=== PATIENT | female | born 1935 | race Caucasian/White ===

== ENCOUNTER 2017-08-02 02:41 | Inpatient (IN) | payer OTHER ==
[~2017-08-02] VITALS: Ht 162.6 cm; Wt 77.8 kg
[~2017-08-02 02:41] MED LIST: MELOXICAM15 M1 PO; SYNTHROID75 MCG PO; VICODIN 5-3001 EACH PO
--- NOTE | 2017-08-02 10:16 | Admission Core Measures ---
Acute Coronary Syndrome (CM) ACS Core Measures Acute Coronary Syndrome Diagnosis No Congestive Heart Failure (NEW) CHF Core Measures Congestive Heart Failure Diagnosis No Cerebrovascular Accident (NEW) CVA Core Measures CVA/TIA Diagnosis No Venous Thromboembolism VTE Core Ruddy (View Protocol) VTE Risk Factors Surgery No Mechanical VTE Prophylaxis d/t N/A MechProphylax Ordered No VTE Pharm Prophylaxis d/t NA PharmProphylax ordered Problem List As ranked by this Provider includes Assessment & Plan 1. Unilateral primary osteoarthritis, right hip HOME MEDS Home Med List Hydrocodone/Acetaminophen (Vicodin 5-300 MG Tablet) 5 MG-300 MG TABLET 1 TAB PO BID PAIN (Reported) Levothyroxine Sodium (Synthroid) 75 MCG TABLET 1 TAB PO DAILY HORMONE ( Reported) Meloxicam 15 MG TABLET 1 TAB PO DAILY PaIN (Reported)
--- NOTE | 2017-08-02 10:20 | Patient Discharge Instructions ---
Discharge Instructions General Discharge Information You were seen/treated for: Right hip pain related to unilateral primary osteoarthritis You had these procedures: Right total hip replacement Watch for these problems: Increasing pain despite the use of pain medication Increasing redness, warmth or swelling Drainage of any type from incision Inability to bear weight on operative leg Persistent nausea and vomiting Fever greater than 101.5 degrees Do not soak the wound: Yes No bath, but you may shower: Yes Other wound care: Please keep wound clean and dry. No ointments or lotions of any type on or near incision at any time. No exceptions. Your dressing will be changed by your nurse on the second day after your surgery. Daily dry dressing changes are recommended each day thereafter. Do not soak your wound in a bath at any time until otherwise indicated by your surgeon. You may shower, please dry wound immediately after shower with a clean towel. Special Instructions: Constipation: Pain medication can cause constipation. Dr. Mancia has recommended that you take Colace and miralax each day. You may discontinue this medication if you develop loose stool or diarrhea. If you wish to continue this medication, it is available over the counter. If you are unable to move your bowels after several days, if you are unable to pass gas and are developing bloating, nausea, or vomiting as a result, please contact your doctor. Diet Continue normal diet: Yes Recommended Diet: Regular Activity Full Activity/No Limits: No Activity Self Limited: Yes Pounds, do NOT lift more than: 10 Activity Limited to: Weight bear as tolerated Additional ACTIVITY Info: Posterior hip precautions in place until otherwise indicated by Dr. Mancia Acute Coronary Syndrome Inclusion Criteria At MI or during hospital stay patient has or had the following: ACS DIAGNOSIS No Discharge Core Measures Meds if any: Prescribed or Continued at Discharge Meds if any: NOT Prescribed or Continued at Discharge Congestive Heart Failure Inclusion Criteria At DC or during hospital stay patient has or had the following: CHF DIAGNOSIS No Discharge Core Measures Meds if any: Prescribed or Continued at Discharge Meds if any: NOT Prescribed or Continued at Discharge Cerebrovascular accident Inclusion Criteria At DC or during hospital stay patient has or had the following: CVA/TIA Diagnosis No Discharge Core Measures Meds if any: Prescribed or Continued at Discharge Meds if any: NOT Prescribed or Continued at Discharge Venous thromboembolism Inclusion Criteria VTE Diagnosis No VTE Type NONE VTE Confirmed by (Test) NONE Discharge Core Measures - Per Current guidelines, there needs to be overlap - treatment for the first 5 days of Warfarin therapy. - If discharged on Warfarin prior to 5 days of - overlap therapy, the patient will need to be - assessed for post discharge needs including - *Post discharge parental anticoagulation - *Warfarin and/or parental anticoagulation education - *Follow up date to check INR post discharge At least 5 days overlap therapy as Inpatient No Meds if any: Prescribed or Continued at Discharge Note: Overlap Therapy is Warfarin and Anticoagulant Meds if any: NOT Prescribed or Continued at Discharge
--- NOTE | 2017-08-02 10:22 | Surgical Discharge Summary ---
Visit Information Visit Dates Admission Date: 08/02/17 Discharge Date: 08/05/17 History of Present Illness Chief Complaint: Right hip pain related to unilateral primary osteoarthritis Medical History Pneumonia Vaccine: 01/27/03 Influenza Vaccine: 01/28/08 Surgical History Pertinent Surgical History: non-contributory Psychosocial History Who Do You Live With? Spouse What is Your Primary Language? Lithuanian Review of Systems: See H&P Hospital Course Course Attending Physician: Gerry Mancia MD Primary Care Physician: Samuel Maria MD Hospital Course: Patient was admitted to the hospital for an elective total joint replacement. The procedure was tolerated well and patient was transferred to a general surgical floor. Diet was advanced and tolerated.. The patient was evaluated and treated by physical therapy. At the time of hospital discharge, the vital signs were stable, neurovascular status was intact, and pain was controlled with the use of oral pain medications. Allergies: Coded Allergies: No Known Allergies (07/21/17) Disposition Summary Disposition Principal Diagnosis: Right hip unilateral primary osteoarthritis Additional Diagnosis: None Discharge Disposition: SNF Discharge Instructions General Discharge Information Code Status: Full Code Patient's Diet: Regular, advance as tolerated Patient's Activity: WBAT, posterior hip precautions in place Follow-Up Instructions/Appts: Follow up with Dr. Mancia in 2 weeks from date of surgery Medications at Discharge Discharge Medications: Stop taking the following medications: Hydrocodone/Acetaminophen (Vicodin 5-300 MG Tablet) 5 MG-300 MG TABLET ORAL TWICE DAILY Continue taking these medications: Levothyroxine Sodium (Synthroid) 75 MCG TABLET 1 Tablet ORAL DAILY
--- NOTE | 2017-08-02 10:43 | RADIOLOGY REPORT ---
EXAMINATION: XR HIP, RIGHT CLINICAL INFORMATION: Status post right total hip replacement. COMPARISON: Right hip radiograph 07/09/2015. TECHNIQUE: Single view of the right hip. FINDINGS: Prosthetic components of the right total hip arthroplasty are appropriately aligned. No periprosthetic fracture. Gas from recent surgery is present in the surrounding soft tissues. IMPRESSION: Expected postoperative findings related to total right hip arthroplasty.
[2017-08-02 11:37] VITALS: BP 126/78
--- NOTE | 2017-08-02 12:33 | Operative Report ---
Operative/Inv Procedure Report Surgery Date: 08/02/17 Name of Procedure: Right total hip arthroplasty Pre-Operative Diagnosis: Primary osteoarthritis right hipPrimary osteoarthritis right hip Post-Operative Diagnosis: SameSame Estimated Blood Loss: 300 Surgeon/Ensemble Member: Gavino W[place],Gerry PORTER Anesthesia: block IV Fluids: See anesthesia recordSee anesthesia record Implants: Opolis Accolade 2 stem size 5, 58 acetabular shell 127 neck angle standard neck length 36 mm head Drains: None Specimens: Right femoral head Complications: None Condition: Stable Operative Indication: Patient is a 81-year-old female who is failed conservative treatment for her primary osteoarthritis of the right hip. She was indicated for right total hip arthroplasty. The risks and benefits of the procedure were discussed with the patient in detail. She was to proceed. Skills that hand is necessary and provided by physician technical support assistant home on generator with limb positioning and retraction component assembly and tissue retraction throughout the case. Operative/Procedure Note Note: Once informed consent was obtained and the correct limb was identified patient was brought to have been placed on table supine position after administration of spinal anesthesia. A Nagy catheter was placed and the patient was placed in the left lateral decubitus position on the pegboard for positioning of a total hip arthroplasty. Right lower extremity was prepped and draped in usual sterile fashion after all bony prominences had been padded and an axillary roll was placed. To begin the procedure standard incision was made for superior approach to the hip. Sharp dissection carried down through skin and subcutis tissue. The gluteus rocael fascia was incised and the fibers were bluntly dissected. Retractors placed deep to the gluteus medius and around the femoral neck. The piriformis muscle and tendon were identified and released from the insertion point in the piriformis fossa and tagged for later repair. At this point the retractor was then placed deep to gluteus minimus and the superior capsule was exposed. A superior capsulotomy was performed. Labrum was resected and the hip was dislocated. Femoral neck cut was made a fingerbreadth above the lesser trochanter. Femoral head was removed and passed off as specimen. Anterior and inferior acetabular retractors were placed and pulmonary was removed from the acetabulum. Any remaining labrum was resected as well as bony osteophytes of the acetabular shell. We then began reaming sequentially is a 45 reamer and reamed up to a size 57 reamer. We were able to trial 50 copy writer which had a good press-fit. He has time and was pulse lavaged in size 58 acetabular shell was opened and press-fit into the acetabulum. 2 screws were placed in the posterior superior quadrant for fixation purposes. The 10 liner was opened up and locked onto the acetabular without complication. A Ray-Justice was placed to protect it. Attention was then turned to the femoral component. The femur was internally rotated and the box osteotome was used to remove lateral femoral neck. The canal finding reamer was used to open up the femoral canal. We then began broaching starting with a 0 broach and broached up to a size 5 broach size 5 broach was left in place and found to be stable. A trial reduction was done with a standard neck length 127 neck angle and 36 mg. The hip relocated nicely and was stable to anterior and posterior rotation. Leg lengths are equal. The hip was stable with 95 of flexion and 30 of internal rotation. Hip was redislocated and the components removed. The femoral canal was pulse lavaged and a size 5 Accolade 2 127 neck anglewas opened and placed on the femoral canal using press-fit technique. Excellent fixation was obtained. Trial reduction was done again with a 36 mm head 0 neck length. This is found to be stable. The hip was dislocated and the 36 mm Biolox head was opened and placed onto the stem. Hip was relocated and again taken through range of motion. At this point the wound was irrigated with pulse lavage. A drill was placed to the greater trochanter and the capsule and piriformis tendon were repaired back to the greater trochanter. Gluteus fascia was then repaired with a running #1 looped Maxon suture. The subcutaneous tissues closed with #1 Vicryl and 2-0 Vicryl interrupted sutures and the skin was closed with frank. Sterile dressing was applied and patient was awakened taken, in stable condition.
--- NOTE | 2017-08-02 13:27 | PN- Orthopedic ---
Subjective Subjective: POC S/P RIGHT VERONICA SITTING UP IN BED EATING LUNCH IN GOOD SPIRITS\ DENEIS CP, SOB, NO N+V WITH DIET Objective Vital Signs and I&Os Vital Signs Date Time Temp Pulse Resp B/P B/P Pulse O2 O2 Flow FiO2 Mean Ox Delivery Rate 08/02 1137 95 Nasal 2.0L Cannula 08/02 113 97.0 74 18 126/78 95 Room Air Intake & Output 08/02 0808/02 0000 08/01 1600 08/01 0808/01 0000 Intake Total Output Total Balance Patient 170 lb Weight Weight Reported by Patient Measurement Method Physical Exam: CV: RRR LUNGS: CLEAR ABD: SOFT, +BS EXT: THGH SOFT DRSG DRY, DISTAL CMS INTACT Assessment/Plan Assessment/Plan ORTHO STABLE PLAN ELIQUIS BID FOR DVT PROPHYLAXIS WEEN IVF OOB WITH PT, WBAT RIGHT LE POSTERIOR HIP PRECAUTONS RIGHT HIP\ ADVANCE DIET Core Measures Venous Thromboembolism VTE Risk Factors Surgery No Mechanical VTE Prophylaxis d/t N/A MechProphylax Ordered No VTE Pharm Prophylaxis d/t NA PharmProphylax ordered
[2017-08-02 13:58] VITALS: BP 112/58
--- NOTE | 2017-08-02 15:15 | Cons- Medical ---
Estela Voss 08/02/17 1515: General Information and HPI Consulting Request Date of Consult: 08/02/17 Requested By: Gerry Mancia MD Reason for Consult: Help with medical management Source of Information: patient Exam Limitations: no limitations History of Present Illness: This is a 81 YO F w/pmh significant for hypothyroidism, PE diagnosed in 2002 not on medications, took warfarin for one year, s/p IVC filter a week ago, right knee OA and chronic pain, hyperlipidemia on red rice yeast, unspecified skin cancer on RUE s/p removal 2 years ago who is admitted under surgical service for right total hip arthroplasty. She used to be on iron for anemia which was stopped last week as her labs were returned to normal. She has appointment for removal of IVC filter in 3 weeks. At the time of our interview, she offers no complaints. She underwent right total hip arthroplasty today. Per patient she takes her levothyroxine only 6 days a week. The patient does not smoke, no ETOH or illicit drug use. Per patient, she was on statin in past and developed muscle pain, her statin was stopped and she was started on red rice yeast. Allergies/Medications Allergies: Coded Allergies: No Known Allergies (07/21/17) Review of Systems Review of Systems Constitutional: Reports: no symptoms. EENTM: Reports: no symptoms. Cardiovascular: Reports: no symptoms. Respiratory: Reports: no symptoms. Denies: cough, hemoptysis, orthopnea, short of breath. GI: Reports: constipation. Denies: see HPI, abdominal pain, bloating, diarrhea, distention, bowel incontinence, melena, nausea, bloody stool, changes in stool, vomiting, steatorrhea. Genitourinary: Reports: no symptoms. Musculoskeletal: Reports: joint pain. Denies: back pain, joint swelling, muscle pain, muscle stiffness, neck pain. Skin: Reports: no symptoms. Neurological/Psychological: Reports: no symptoms. Hematologic/Endocrine: Reports: no symptoms. Immunologic/Allergic: Reports: no symptoms. All Other Systems: Reviewed and Negative Past History Medical History Blood Transfusion Hx: No Neurological: NONE EENT: NONE Cardiovascular: hyperlipidemia Respiratory: NONE Gastrointestinal: NONE Hepatic: NONE Renal: NONE Musculoskeletal: degen joint disease, osteoarthritis Psychiatric: NONE Endocrine: hypopituitarism Blood Disorders: DVT, PE Cancer(s): basal cell carcinoma PACKAGE HANDLER/Reproductive: NONE Surgical History Surgical History: non-contributory Psychosocial History Where Do You Live? Home Smoking Status: Never Smoked Exam & Diagnostic Data Last 24 Hrs of Vital Signs/I&O Vital Signs Date Time Temp Pulse Resp B/P B/P Pulse O2 O2 Flow FiO2 Mean Ox Delivery Rate 08/02 1358 97.5 72 18 112/58 94 Nasal 2.0L Cannula 08/02 1137 95 Nasal 2.0L Cannula 08/02 1137 97.0 74 18 126/78 95 Room Air Intake & Output 08/02 1600 08/02 0800 08/02 0000 Intake Total 1000 Output Total Balance 1000 Intake, IV 400 Intake, Oral 600 Patient 170 lb Weight Weight Reported by Patient Measurement Method Physical Exam General Appearance: alert, awake, comfortable Head: atraumatic, normal appearance Eyes: Bilateral: normal appearance, PERRL, EOMI. Ears, Nose, Throat: normal pharynx, normal ENT inspection Neck: supple Respiratory: normal breath sounds, chest non-tender, no respiratory distress Cardiovascular: regular rate/rhythm Gastrointestinal: normal bowel sounds, soft, non-tender, no organomegaly Back: normal inspection Extremities: normal inspection, no edema, pulses wnl and symmetrical Last 24 Hrs of Labs/Vel: Microbiology 08/02 0755 URINE ROUT: Urine Culture - RECD Assessment/Plan Assessment/Plan This is a 81 YO F w/pmh significant for hypothyroidism, PE diagnosed in 2002 not on medications, took warfarin for one year, s/p IVC filter a week ago, right knee OA and chronic right knee pain, hyperlipidemia on red rice yeast, unspecified skin cancer on RUE s/p removal 2 years ago who is admitted under surgical service for right total hip arthroplasty. Now POD 0. Problem list: #Hypothyroidism #Remote h/o PE s/p IVC filter placement, now started on apixaban #Right knee OA s/p right total hip arthroplasty POD 0 #Hyperlipidima, develped adverse reaction to statins in past(muscle pain) Plan: * Monitor on [facility] floor * c/w DIE MAKER TRIM levothyroxine * c/w apixaban * Post op and pain management as per primary team * DVT and GI prophylaxis at all times. Consult Acknowledgment - Thank you for your consult request. Steven Cobos 08/02/17 1602: General Information and HPI Allergies/Medications Home Med List: Apixaban (Eliquis) 2.5 MG TABLET 2.5 MG PO BID DVT PROPHALAXIS Hydrocodone/Acetaminophen (Lorcet 5-325 MG Tablet) 5 MG-325 MG TABLET 1-2 TAB PO Q4-6 PRN PRN PAIN SCALE 1-3 (MILD) Levothyroxine Sodium (Synthroid) 75 MCG TABLET 1 TAB PO DAILY HORMONE ( Reported) Assessment/Plan Consult Acknowledgment - Thank you for your consult request. Attending MD Review Statement Attending Statement Attending MD Statement: examined this patient, discuss w/resident/PA/GOLD MINER, agreed w/resident/PA/GOLD MINER, discussed with family, reviewed EMR data (avail) Attending Assessment/Plan: Agree with the above assessment and plan
[2017-08-02 15:30] VITALS: BP 110/58
[2017-08-02 17:30] VITALS: BP 108/58
[2017-08-02 19:30] VITALS: BP 120/52
[2017-08-02 23:23] VITALS: BP 110/52
[2017-08-03 03:30] VITALS: BP 116/56
--- NOTE | 2017-08-03 07:25 | PN- Orthopedic ---
Subjective Subjective: No acute post operative events reported. Patient acknowledging pain to surgical site but no complaints of numbness or tingling distally. Denies chest pain, shortness of breath and difficulty breathing. Denies nausea and vomitting. Has jones catheter in place. Has ambulated. Objective Vital Signs and I&Os Vital Signs Date Time Temp Pulse Resp B/P B/P Pulse O2 O2 Flow FiO2 Mean Ox Delivery Rate 08/03 0730 98.4 94 20 112/52 91 Room Air 08/03 0330 98.2 82 20 116/56 92 08/02 2323 97.9 82 20 110/52 93 Room Air 08/02 1930 97.9 80 20 120/52 93 Room Air 08/02 1730 98.1 86 20 108/58 94 Room Air 08/02 1530 98.0 81 20 110/58 93 Room Air 08/02 1358 97.5 72 18 112/58 94 Nasal 2.0L Cannula 08/02 1137 95 Nasal 2.0L Cannula 08/02 1137 97.0 74 18 126/78 95 Room Air Intake & Output 08/03 1600 08/03 0800 08/03 0000 08/02 1600 08/02 0800 08/02 0000 Intake Total 259 316 5875 Output Total 1100 450 Balance -337 185 7832 Intake, IV 800 550 400 Intake, Oral 600 Output, Urine 1100 450 Patient 171 lb 170 lb Weight Weight Reported by Patient Measurement Method Physical Exam: General: Alert and oriented x3, no acute distress Cardiac: RRR, s1s2 Pulm: CTA bilaterally, non-labored respiratory effort Abd: Soft, non-tender, non-distended Extremities: Moves all extremities, distal sensation grossly intact. Skin warm and well perfused. DP pulses palpable bilaterally. Bilateral calves soft and non-tender. Abduction pillow in place. No resting internal or external rotation of right leg. No obvious shortening of right leg. Dressing dry and intact. Thigh compartment soft. Assessment/Plan Assessment/Plan This is a 81 year old female, POD 1, s/p R THR -Eliquis 2.5 bid for dvt ppx -OOB, wbat, posterior hip precautions in place -DC jones and iv fluids today -Continue diet as tolerated -Continue current pain regimen -Dressing change tomorrow -Anticipate dc to str on pod 3 Will discuss plan of care with Dr. Mancia or Dr. Carter who is covering Core Measures Venous Thromboembolism VTE Risk Factors Surgery No Mechanical VTE Prophylaxis d/t N/A MechProphylax Ordered No VTE Pharm Prophylaxis d/t NA PharmProphylax ordered
[2017-08-03 07:30] VITALS: BP 112/52
[2017-08-03 09:58] LABS: ABSOLUTE BASOPHIL COUNT 0 /CUMM (0.0-0.2); ABSOLUTE EOSINOPHIL COUNT 0.1 /CUMM (0.0-0.7); ABSOLUTE MONOCYTE COUNT 0.9 /CUMM (0.10-0.60); BASOPHIL % 0.1 % (0.0-2.0); EOSINOPHIL % 1.3 % (0-5); GRANULOCYTE % 77.5 % (42.2-75.2); HEMATOCRIT 30.4 % (37-47); MEAN CORPUSCULAR HGB 31.7 PG (27.0-31.0); MEAN CORPUSCULAR HGB CONC 32.9 G/DL (33.0-37.0); MEAN CORPUSCULAR VOLUME 96.4 FL (81.0-99.0); MEAN PLATELET VOLUME 8.3 FL (7.4-10.4); PLATELET COUNT 181 /CUMM (130-400); RBC DISTRIBUTION WIDTH 15.1 % (11.5-14.5); RED BLOOD CELL CT 3.15 /CUMM (4.20-5.40); WHITE BLOOD CELL COUNT 9.1 /CUMM (4.8-10.8)
[2017-08-03 12:16] VITALS: BP 104/48
[2017-08-03 16:37] VITALS: BP 130/59
[2017-08-03 22:47] VITALS: BP 112/60
[2017-08-04 06:59] VITALS: BP 104/56
--- NOTE | 2017-08-04 10:52 | PN- Orthopedic ---
Subjective Subjective: pod#2 s/p right jasmin no major issues overnight denies cp, sob, no n+v withdiet ambulating well with pt Objective Vital Signs and I&Os Vital Signs Date Time Temp Pulse Resp B/P B/P Pulse O2 O2 Flow FiO2 Mean Ox Delivery Rate 08/04 0659 98.3 92 18 104/56 91 08/03 2247 98.8 80 18 112/60 91 Room Air 08/03 1637 98.7 84 18 130/59 92 Room Air 08/03 1216 98.4 68 18 104/48 93 Room Air Intake & Output / 1600 08/04 0800 08/04 0000 08/03 1600 08/03 0800 08/03 0000 Intake Total 809 153 1642 800 550 Output Total 2050 629 311 4262 450 Balance -1930 -200 550 -300 100 Intake, IV 800 550 Intake, Oral 552 439 7107 Output, Urine 2050 192 665 2555 450 Patient 171 lb Weight Physical Exam: cv: rrr lungs: clear abd: soft, +bs ext: no calf tenderness bilat distal cms intact drsg dry Assessment/Plan Assessment/Plan ortho stable plan when back in will change drsg eliquis fro dvt prophylaxis cont oob with pt home d/c tomorrow Core Measures Venous Thromboembolism VTE Risk Factors Surgery No Mechanical VTE Prophylaxis d/t N/A MechProphylax Ordered No VTE Pharm Prophylaxis d/t NA PharmProphylax ordered
[2017-08-04 15:10] VITALS: BP 112/60
[2017-08-04 21:25] VITALS: BP 110/50
[2017-08-05 07:31] VITALS: BP 129/69
[2017-08-05] MEDS ORDERED: LORCET 5-325 M1 EACH PO (09:28)
[2017-08-05] MEDS ORDERED: ELIQUIS2.5 M1 PO (10:02)
== END 2017-08-05 10:37 | disposition home health service (06) | DRG 470 ==
LOC: SDA 02:41 → ENRESERV 10:16 → ENTRNSPT 11:00 → EDTRNSPTSTS 11:14 → EDTRNSPT 11:14 → 2NB 11:25 → CMPTRNSPT 11:40 → ENPENDDIS 08-05 09:28 → ENTRNSPT 08-05 10:29 → EDTRNSPT 08-05 10:32 → EDTRNSPTSTS 08-05 10:32 → 2NB 08-05 10:37 → CMPTRNSPT 08-05 10:42
PROVIDERS: Physician Assistant Surgical
PROC: 0SR904A Replacement of Right Hip Joint with Ceramic on Polyethylene Synthetic Substitute, Uncemented, Open Approach (ICD-10-PCS; principal; 2017-08-02)
DX: M16.11 Unilateral primary osteoarthritis, right hip (principal); E03.9 Hypothyroidism, unspecified; I73.9 Peripheral vascular disease, unspecified; Z86.711 Personal history of pulmonary embolism; E78.5 Hyperlipidemia, unspecified; G89.29 Other chronic pain
CPT/HCPCS: 2NBP; 36415; 36592; 73501; 82436; 87086; 88304; 97110-GO; 97116-GO; 97161-GP; 97530-GO; J0131; J1100; J3370; J7040